=== PATIENT | male | born 2000 | race Caucasian/White ===

== ENCOUNTER 2023-05-16 09:00 | Outpatient (RCR) | payer OTHER, SELFPAY ==
--- NOTE | 2023-04-19 16:53 | OPREHPOC ---
Outpatient Therapy Plan of Care This is a Multidisciplinary Plan of Care that may contain components documented by all disciplines (PT, OT, and ST.) PT Problem 1 PT Problem #1 Knowledge Deficit PT Goal 1 Goal Pt to be IND with issued HEP Target Visit 8 PT Problem 2 PT Problem #2 Pain PT Goal 1 Goal Pt to report back pain no greater than 3/10 in the last week Target Visit 4 PT Goal 2 Goal Pt to report 75% improvement in overall symptoms. Target Visit 8 PT Problem 3 PT Problem #3 Impaired Functional Mobil PT Goal 1 Goal Pt to be able to lift and carry 30lb without compensations Target Visit 8 PT Problem 4 PT Problem #4 Pain PT Goal 1 Goal Pt to be able to stand for 1 hour without an increase in back pain Target Visit 8 PT Goal 2 Goal Pt to report no increase in pain with resisted strength testing Target Visit 8
--- NOTE | 2023-04-19 16:53 | PTOPEVAL1 ---
Assessment and note entered by Braydon Sherwood, PT, DPT Evaluation Information Assessment Status Evaluation Diagnosis low back pain Onset 2 years Subjective Information Pt reports a 2 year history of back pain when he started playing baseball. He states he went to therapy for this last year and the pain went away. From there it slowly came back but inconsistently . He states in the last 3 weeks the pain has been more consistent and makes it hard for him to sit at times. He declines a JOSELIN. He reports getting out of bed, bending over, and other transitional movements increase his pain. He reports sometimes when he moves his leg he will feel a grining pain in his back. He declines anything that makes it better. He reports pain mostly on the R side. Reported Pain Level Pain Score 7: Self Report Assessment PT Clinical Summary Caryn presents to therapy today for his initial evaluation with a diagnosis of low back pain. Today he demonstrates good LE and lumbar ROM and strength but reports an increase in R sided low back pain with motion. There is reported tenderness to palpation in his R piriformis and R side lumbar paraspinal. He demonstrates minor hip drop during ambulation as well as deviations during functional squatting. Skilled therapy services are indicated to manage pain, improve mobility without pain, improve body mechanics, and to return to PLOF without limitations. Plan of Care Interventions Electrical Stimulation,Gait Training,Hot Pack/Cold Pack,Manual Therapy,Neuro Re-education,Patient/ Caregiver Educati,Therapeutic Activities, Therapeutic Exercise PT Services Indicated Yes Treatment Frequency and 2x/wk for 8 visits Duration These treatments will address the objective and functional deficits as defined above. The patient will be advanced safely and appropriately in order for the patient to progress towards his/her prior level of function. Additional exercises will be introduced and as well as a comprehensive home exercise program upon discharge, if needed, ?to ensure carryover of functional gains achieved in the clinic. This treatment plan has been reviewed and agreement upon by the patient.
--- NOTE | 2023-05-16 09:49 | PTOPDC ---
Assessment and note entered by Braydon Sherwood, PT, DPT Evaluation Information Assessment Status Discharge Diagnosis low back pain Onset 2 years Subjective Information Pt states for the last 1-2 weeks he has not had any back pain with sitting and standing throughout the day. He states he has not returned to his normal exercise routine yet but plans to. Reported Pain Level Pain Score 0: Self Report Pain Score 0: Self Report Assessment PT Clinical Summary Caryn presents to therapy today for his progress report following 8 visits of skilled therapy to treat his low back pain. Today he demonstrates improved pain reported with active LE and lumbar motion, and decreased pain with resisted motion. He demonstrates improved body awareness and lifting mechanics with functional lifting. He has met all of his therapy goals and no longer requires skilled services. He will be discharged at this time. Plan of Care PT Services Indicated No
== END 2023-05-16 11:05 | disposition home or self-care (01) ==
LOC: ANHGOSHPT 09:00
DX: M54.50 Low back pain, unspecified (principal)
CPT/HCPCS: 97110; 97140; 97161; 97530